=== PATIENT | female | born 1985 | race Caucasian/White ===

== ENCOUNTER 2016-06-12 21:02 | Outpatient (CLI) | payer BC | END 2016-06-12 23:00 | disposition home or self-care (01) | LOC: LDOP 21:02 | PROVIDERS: ATTEND Student in an Organized Health Care Education/Training Program | DX: O36.8130 Decreased fetal movements, third trimester, not applicable or unspecified (principal); O13.3 Gestational [pregnancy-induced] hypertension without significant proteinuria, third trimester; Z3A.39 39 weeks gestation of pregnancy | CPT/HCPCS: 59025; 76815; 81001; 87086; 99201; G0463 ==